=== PATIENT | female | born 1935 | race Caucasian/White ===

== ENCOUNTER 2016-07-18 14:19 | Emergency (ER) | payer MEDICARE ==
[~2016-07-18 14:19] MED LIST: ACTOS15 PO; ASAB PO; CARDCD180 PO; COLCH6 PO; COZAAR100 MG PO; DILT-XR240 MG PO; DIOV80 PO; GLUCOPHAGE1000 MG PO; GLUCOPHXR PO; GLUCPH PO; GLUCXL10 PO; GLUMETZA500 MG PO; HEMOCYTE324 MG PO; HYDROCHLOROT25 MG PO; I-CAPS; KDUR20 PO; L40 PO; LASIX; LYRICA100 MG PO; LYRICA50 PO; LYRICA75 PO; MAGNESIUM; MAGOX4 PO; MULTIVITAMI1 PO; NEXIUM40 PO; PLAVIX PO; POTASSIUM; PRAVACHOL40 MG PO; PROTONIX PO; RAN500 PO; RANEXA; TAMBO50 PO; TAMBOCOR PO; VITAMIN B-121000 MC1 SL
[2016-07-18 15:35] LABS: BASOPHILS 0.6 %; BASOPHILS ABSOLUTE 0.03 10/3/uL (0.0-0.16); EOSINOPHILS 0.2 %; EOSINOPHILS ABSOLUTE 0.01 10/3/uL (0.0-0.53); ER CBC TAT 0 Hrs 10 Mins; HEMATOCRIT 35.5 % (36.0-48.0); HEMOGLOBIN 12.3 g/dL (12.0-16.0); IMMATURE GRANULOCYTES 0.2 %; IMMATURE GRANULOCYTES ABSOLUTE 0.01 10/3/uL (0.0-0.11); LYMPHOCYTES 27.3 %; LYMPHOCYTES ABSOLUTE 1.48 10/3/uL (0.67-4.30); MEAN CORPUS HGB CONC 34.6 g/dL (32.0-36.0); MEAN CORPUSCULAR HEMOGLOB 30.8 pg (26.0-34.0); MEAN CORPUSCULAR VOLUME 88.8 fL (80-100); MEAN PLATELET VOLUME 10.7 fL (9.2-13.0); MONOCYTES 8.1 %; MONOCYTES ABSOLUTE 0.44 10/3/uL (0.21-1.20); NEUTROPHILS 63.6 %; NEUTROPHILS ABSOLUTE 3.45 10/3/uL (2.02-8.40); PLATELET COUNT 213 10/3/uL (150-400); RBC DISTRIBUTION WIDTH 13.2 % (12.0-16.0); WHITE BLOOD CELLS 5.4 10/3/uL (4.5-10.5)
[2016-07-18 15:36] LABS: MANUAL DIFF NO %
[2016-07-18 15:45] LABS: INTERNATIONAL NORMAL RATI 1.2 UNITS (-); PARTIAL THROMBO TIME 37.1 SEC (22.5-37.2); PROTIME (NOT ORD) 15.1 SEC (12.0-14.5)
[2016-07-18 15:54] LABS: ALBUMIN 3.8 G/DL (3.5-5.0); ALKALINE PHOSPHATASE 105 U/L (45-117); BUN (BLOOD UREA NITROGEN) 24 MG/DL (6-23); CALCIUM, SERUM 9.3 MG/DL (8.5-10.4); CHEST PAIN PROFILE TAT 0 Hrs 29 Mins; CHLORIDE, SERUM 102 MMOL/L (96-112); CO2 (CARBON DIOXIDE) 24 MMOL/L (24-34); CREATININE 1.48 MG/DL (0.55-1.02); DIRECT BILIRUBIN 0.1 MG/DL (0.0-0.4); GFR AFRICAN AMERICAN 39 ML/MIN (>=60); GFR NON AFRICAN AMERICAN 34 ML/MIN (>=60); GLUCOSE, SERUM 147 MG/DL (60-99); INDIRECT BILIRUBIN(NOT ORDER) 0.4 MG/DL (0.1-0.9); POTASSIUM, SERUM 4.2 MMOL/L (3.5-5.3); SGOT(AST) 99 U/L (5-40); SGPT(ALT) 82 U/L (5-65); SODIUM, SERUM 137 MMOL/L (135-148); TOTAL BILIRUBIN 0.5 MG/DL (0-1.2); TOTAL PROTEIN 8.5 G/DL (6.0-8.5); TROPONIN I <0.02 NG/ML (<0.05)
[2016-07-18 16:46] LABS: ASCORBIC ACID (UR NOT ORDER) NEG (NEG); BILIRUBIN, URINE NEGATIVE (NEG); ER URINALYSIS TAT 0 Hrs 07 Mins; KETONE, URINE NEGATIVE (NEG); LEUKOCYTE ESTERASE(NOT OR SMALL (NEG); NITRITE (URINE) NEG (NEG); WBC (NOT ORDERED) (RFLEX) 3 (0-5)
[2016-12-03] MEDS ORDERED: Z300 PO (13:31)
[2016-12-03] MEDS ORDERED: HALF81 PO (13:32)
[2016-12-03] MEDS ORDERED: L40 PO (13:32)
[2016-12-03] MEDS ORDERED: GLUCXL10 PO (13:32)
[2016-12-03] MEDS ORDERED: CYANO1000T PO (13:32)
[2016-12-03] MEDS ORDERED: KDUR10 PO (13:32)
[2016-12-03] MEDS ORDERED: PLAVIX PO (13:33)
[2016-12-03] MEDS ORDERED: MAG OXIDE250 MG PO (13:33)
[2016-12-03] MEDS ORDERED: OCUVITE PO (13:33)
[2016-12-03] MEDS ORDERED: ACTOS15 PO (13:34)
[2016-12-03] MEDS ORDERED: FORTAMET500 MG PO (13:35)
[2016-12-03] MEDS ORDERED: COZAAR100 MG PO (13:35)
[2016-12-03] MEDS ORDERED: LYRICA150 MG PO (13:35)
[2016-12-03] MEDS ORDERED: [UNRECOGNIZED DRUG - OTHER] TOP (13:46)
[2016-12-03] MEDS ORDERED: MCZ25 PO (13:46)
[2016-12-03] MEDS ORDERED: ZOL50 PO (13:46)
[2016-12-03] MEDS ORDERED: BION TEARS OPH (13:47)
[2016-12-03] MEDS ORDERED: PROTONIX PO (13:49)
== END 2016-07-18 17:12 | disposition home or self-care (01) ==
LOC: ER 14:19
PROVIDERS: Emergency Medicine
DX: N18.9 Chronic kidney disease, unspecified (principal); R11.0 Nausea; E11.9 Type 2 diabetes mellitus without complications; Z88.2 Allergy status to sulfonamides; Z79.82 Long term (current) use of aspirin; Z79.899 Other long term (current) drug therapy
CPT/HCPCS: 80048; 80076; 81001; 83690; 83735; 84484; 85025; 85610; 85730; 87077; 87086; 87186; 93005; 99284